=== PATIENT | male | born 1990 | race Caucasian/White ===

== ENCOUNTER 2017-05-28 14:47 | Emergency (ER) | payer OTHER ==
[~2017-05-28] VITALS: Ht 172.7 cm; Wt 79.5 kg
[~2017-05-28 14:47] MED LIST: NOCURR
[2017-05-28] MEDS ORDERED: IBUPROFEN 600 MG TABLET PO ONE (18:30)
[2017-05-28 18:53] VITALS: BP 122/61
== END 2017-05-28 18:59 | disposition home or self-care (01) ==
LOC: EMS 14:48
DX: M62.838 Other muscle spasm (principal); F12.90 Cannabis use, unspecified, uncomplicated
CPT/HCPCS: 72125; 99284